=== PATIENT | male | born 1980 | race Caucasian/White ===

== ENCOUNTER 2017-11-11 09:27 | Outpatient (CLI) | payer OTHER ==
--- NOTE | 2017-11-11 17:53 | MRI ---
MRI OF RIGHT KNEE WITHOUT CONTRAST 11/11/17 HISTORY: M23.91 - internal derangement of right knee. COMPARISON: None. FINDINGS: MEDIAL MENISCUS: There is a vertical longitudinal bucket handle tear extending from the anterior horn/body junction th rough the body and posterior horn medial meniscus with tissue flipped within the intercondylar notch. Approximately 50% of the meniscal volume is flipped. LATERAL MENISCUS: Intact. ACL, PCL, MCL, and LCL are all intact. EXTENSOR MECHANISM: Quadriceps tendon, patella and patellar tendon are all intact. CARTILAGE: PATELLOFEMORAL COMPARTMENT: There are approximately 50% thickness cartilage fissures of the patellar apex at the central portion of the patella. MEDIAL COMPARTMENT: No focal defect. LATERAL COMPARTMENT: No focal defect. BONES: No fracture, malalignment or stress edema. SOFT TISSUES: Mild infrapatellar soft tissue edema. IMPRESSION: 1. Vertical longitudinal bucket handle tear throughout the body, anterior and posterior horns of the medial meniscus with approximately 50% of the meniscal volume flipped at the intercondylar notch . 2. 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 3. Grade II partial tear semimembranosus muscle incompletely evaluated although majority of the tear appears to originate 8.5 cm above the joint line with tear extending through the myotendinous ju nction. Distal tendon is intact. Code T POS: JOE
== END 2017-11-11 09:28 | disposition home or self-care (01) ==
LOC: SCSMRI 09:27
PROVIDERS: ATTEND Orthopaedic Surgery
DX: M23.91 Unspecified internal derangement of right knee (principal); S83.211A Bucket-handle tear of medial meniscus, current injury, right knee, initial encounter; S76.911D Strain of unspecified muscles, fascia and tendons at thigh level, right thigh, subsequent encounter; M94.261 Chondromalacia, right knee

== ENCOUNTER 2020-09-03 08:05 | Outpatient (CLI) | payer OTHER | END 2020-09-03 08:06 | disposition home or self-care (01) | LOC: BICMRI 08:05 | PROVIDERS: ATTEND Nurse Practitioner Family | DX: S49.92XD Unspecified injury of left shoulder and upper arm, subsequent encounter (principal); S43.432A Superior glenoid labrum lesion of left shoulder, initial encounter; M19.012 Primary osteoarthritis, left shoulder ==

== ENCOUNTER 2020-10-07 13:20 | Outpatient (CLI) | payer OTHER ==
[2020-10-07] MEDS ORDERED: EPINEPHrine 1 MG/ML AMP ONE (14:45)
[2020-10-07] MEDS ORDERED: Iopamidol 300 61% 50 ML VIAL FS ONE (14:45)
[2020-10-07] MEDS ORDERED: Gadobenate Dimeglumine 529 MG/1 ML (20ML VIAL) ONE (14:45)
[2020-10-07] MEDS ORDERED: Lidocaine 1% PF 10 ML AMP ONE (14:45)
== END 2020-10-07 13:21 | disposition home or self-care (01) ==
LOC: RAD 13:20
PROVIDERS: ATTEND Orthopaedic Surgery
DX: S43.432A Superior glenoid labrum lesion of left shoulder, initial encounter (principal)
CPT/HCPCS: 23350; A9577; J0171; J2001; Q9967